=== PATIENT | male | born 1985 | race Caucasian/White ===

== ENCOUNTER 2022-10-19 04:40 | Inpatient (IN) | payer OTHER ==
--- OUTSIDE RECORDS SUMMARY | 2022-10-19 04:43 | XMS REPORT | Continuity of Care Document ---
:1985 Author Organization [facility] t Address [address] [place] [address] [address] [place] [address] Care Team Providers Name Role Phone PCP, PATIENT DOES NOT HAVE A Primary Care Physician Ese Walker Attending Clinician Unknown, Attending Attending Clinician Unavailable ESE HERNANDEZ Attending Clinician Unavailable Doctor Unassigned, [place] Attending Clinician Unavailable Payers Payer Name Policy Type Policy Number Effective Date Expiration Date S ource Problems Condition Condition Condition Status Onset Resolution Last Treating Co mments Source Name Details Category Date Date Treatment Clinician Date No known No known Disease Unive rs active active ity of problems problems [facility] Allergies, Adverse Reactions, Alerts Allergy Allergy Status Severity Reaction(s) Onset Inactive Treating Comm ents Source Name Type Date Date Clinician NO KNOWN Drug Active Univers ALLERGIE Class ity of S [facility] Social History Social Habit Start Date Stop Date Quantity Comments Source Exposure to 2022-07-23 2022-08-02 Not sure [facility] SARS-CoV-2 (event) 00:00:00 13:17:00 Medica l Branch Sex [facility]igned At [birth year] [facility] [place] 00:00:00 00:00:00 Medical Branch Smoking Status Start Date Stop Date Source Tobacco smoking consumption Univ [facility] Medical unknown Branch Medications Ordered Filled Start Stop Current Ordering Indication Dosage Frequency Signature Comments Components Source Medication Medication Date Date Medication? Clinician (SIG) Name Name doxycycline 2021-09- Yes [id number] 100mg Take 1 Univers hyclate 100 10-02 tablet by it y of mg tablet 00:00: 05:59 mouth in [place] 00 :00 the Medical morning Branch and 1 tablet in the evening. Do all this for 10 days. Vital Signs Vital Name Observation Time Observation Value Comments Source Systolic blood 2022-08-02 19:27:00 139 mm[Hg] Univer sity of pressure [facility] Diastolic blood 2022-08-02 19:27:00 82 mm[Hg] Unive rsity of [facility] Heart rate 2022-08-02 19:27:00 88 /min [facility] Body temperature 2022-08-02 19:27:00 36.67 Alexia [facility] Respiratory rate 2022-08-02 19:27:00 16 /min [facility] Body height 2022-08-02 19:27:00 185.4 cm [facility] Body weight 2022-08-02 19:27:00 96.843 kg [facility] BMI 2022-08-02 19:27:00 28.17 kg/m2 [facility] Oxygen saturation in 2022-08-02 19:27:00 97 /min [facility] Arterial blood by [facility] Pulse oximetry [facility] Procedures Procedure Date / Time Performed Performing Clinician [facility] e ASSIGNMENT OF BENEFITS 2022-08-02 19:15:02 Doctor Unassigned, No [facility] Encounters Start End Encounter Admission Attending Care Care Encounter Source Date/Time Date/Time Type Type Clinicians Facility Department ID 2022-08-02 2022-08-02 Urgent Ese Hernandez [facility] [id number] Univers 13:20:00 13:40:00 Care Unknown, Attending HEALTH [id number] juventino [facility] [id number] [place] ANDI?BLEA [phone] [address] MEDICAL OFFICE BUILDING 2022-08-02 2022-08-02 Outpatient R [facility] [id number] Univers 13:20:00 13:20:00 ESE jauregui [facility] 2022-08-02 2022-08-02 Orders Doctor HARMAN [id number] Univers 00:00:00 00:00:00 Only Unassigned, CINDY [id number] ity of [place] [facility] [id number] [place] [phone] [facility] 009 Branch Results This patient has no known results.
[2022-10-19 05:20] LABS: Absolute Lymphocytes (CBC) 1.3 K/uL (0.7-4.9); Hematocrit 45.2 % (39.6-49.0); Lymphocytes % 26.7 % (15.3-44.8); MCV 83.8 fL (80-100); RBC Red Blood Cell Count 5.39 M/uL (4.33-5.43)
[2022-10-19 05:32] LABS: Potassium 3.6 mmol/L (3.5-5.1)
[2022-10-19 05:37] LABS: Troponin High Sensitivity 76.1 pg/mL (<58.9)
[2022-10-19] MEDS ORDERED: ENOXAPARIN 100 MG/ML SYR SQ ONE (05:51)
[2022-10-19] MEDS ORDERED: METOPROLOL TAR 25 MG TAB ONE (05:51)
[2022-10-19] MEDS ORDERED: ASPIRIN 81 MG CHEWABLE TABLET ONE (05:51)
--- NOTE | 2022-10-19 05:56 | EDPHYS ---
Physician Documentation [facility] Name: Yasir Jimenez Age: 37 yrs Sex: Male : 1985 Arrival Date: 10/19/2022 Time: 04:41 Bed 5 Private MD: ED Physician Jaret Helton HPI: 10/19 05:51 This 37 yrs old Male presents to ER via Ambulatory with complaints of Chest carlene Pain. 05:51 The patient or guardian reports chest pain that is located primarily in the substernal carlene area. The pain does not radiate. Associated signs and symptoms: The patient has no apparent associated signs or symptoms. The chest pain is described as a pressure. Modifying factors: The symptoms are alleviated by nothing. the symptoms are aggravated by nothing. Severity of pain: At its worst the pain was moderate in the emergency department the pain is unchanged. The patient has not experienced similar symptoms in the past. Historical: - Allergies: 04:47 No Known Allergies; tw5 - Home Meds: 04:47 None [Active]; tw5 - PMHx: 04:47 None; tw5 - PSHx: 04:47 None; tw5 - Immunization history:: Flu vaccine is not up to date. - Social history:: Smoking status: Patient denies any tobacco usage or history of. - Family history:: not pertinent. ROS: 05:51 Constitutional: Negative for fever, chills, and weight loss, Eyes: Negative for injury, carlene pain, redness, and discharge, ENT: Negative for injury, pain, and discharge, Neck: Negative for injury, pain, and swelling, Respiratory: Negative for shortness of breath, cough, wheezing, and pleuritic chest pain, Abdomen/GI: Negative for abdominal pain, nausea, vomiting, diarrhea, and constipation, Back: Negative for injury and pain, : Negative for injury, bleeding, discharge, and swelling, MS/Extremity: Negative for injury and deformity, Skin: Negative for injury, rash, and discoloration, Neuro: Negative for headache, weakness, numbness, tingling, and seizure, Psych: Negative for depression, anxiety, suicide ideation, homicidal ideation, and hallucinations, Allergy/Immunology: Negative for hives, rash, and allergies, Endocrine: Negative for neck swelling, polydipsia, polyuria, polyphagia, and marked weight changes, Hematologic/Lymphatic: Negative for swollen nodes, abnormal bleeding, and unusual bruising. 05:51 Cardiovascular: Positive for chest pain. Exam: 05:51 Constitutional: This is a well developed, well nourished patient who is awake, alert, carlene and in no acute distress. Head/Face: Normocephalic, atraumatic. Eyes: Pupils equal round and reactive to light, extra-ocular motions intact. Lids and lashes normal. Conjunctiva and sclera are non-icteric and not injected. Cornea within normal limits. Periorbital areas with no swelling, redness, or edema. ENT: Nares patent. No nasal discharge, no septal abnormalities noted. Tympanic membranes are normal and external auditory canals are clear. Oropharynx with no redness, swelling, or masses, exudates, or evidence of obstruction, uvula midline. Mucous membranes moist. Neck: Trachea midline, no thyromegaly or masses palpated, and no cervical lymphadenopathy. Supple, full range of motion without nuchal rigidity, or vertebral point tenderness. No Meningismus. Chest/axilla: Normal chest wall appearance and motion. Nontender with no deformity. No lesions are appreciated. Cardiovascular: Regular rate and rhythm with a normal S1 and S2. No gallops, murmurs, or rubs. Normal PMI, no JVD. No pulse deficits. Respiratory: Lungs have equal breath sounds bilaterally, clear to auscultation and percussion. No rales, rhonchi or wheezes noted. No increased work of breathing, no retractions or nasal flaring. Abdomen/GI: Soft, non-tender, with normal bowel sounds. No distension or tympany. No guarding or rebound. No evidence of tenderness throughout. Back: No spinal tenderness. No costovertebral tenderness. Full range of motion. Skin: Warm, dry with normal turgor. Normal color with no rashes, no lesions, and no evidence of cellulitis. MS/ Extremity: Pulses equal, no cyanosis. Neurovascular intact. Full, normal range of motion. Neuro: Awake and alert, GCS 15, oriented to person, place, time, and situation. Cranial nerves II-XII grossly intact. Motor strength 5/5 in all extremities. Sensory grossly intact. Cerebellar exam normal. Normal gait. Psych: Awake, alert, with orientation to person, place and time. Behavior, mood, and affect are within normal limits. 05:51 ECG was reviewed by the Attending Physician. Vital Signs: 04:45 BP 127 / 80; Pulse 72; Resp 18; Temp 97.9; Pulse Ox 100% ; Weight 95.25 kg; Height 6 tw5 ft. 1 in. (185.42 cm); Pain 5/10; 04:45 Body Mass Index 27.71 (95.25 kg, 185.42 cm) tw5 MDM: 05:40 Patient medically screened. carlene 05:53 Differential diagnosis: abnormal EKG, acute myocardial infarction, acute pericarditis, carlene anxiety, chest wall pain, costochondritis, esophagitis, hiatal hernia, pancreatitis, pulmonary embolus, stable angina, unstable angina. HEART Score: History: Moderately Suspicious (1), ECG: Normal (0), Age: < or = 45 years (0), Risk Factors: No Risk Factors Known (0), Troponin: < or = 1 x Normal Limit (0). COLIN Risk Score: 1 - Elevated Cardiac Markers, TOTAL SCORE = 1. Data reviewed: vital signs, nurses notes, lab test result(s), EKG, radiologic studies, plain films. Consideration of Admission/Observation Patient was admitted/placed on observation. Escalation of care including admission/observation considered. Independent interpretation of the following test(s) in the Emergency Department EKG: See my EKG interpretation above. Test considered but Not performed: Ultrasound gb, echo. 10/19 04:49 Order name: Basic Metabolic Panel; Complete Time: 06:26 tw5 10/19 04:49 Order name: CBC with Diff; Complete Time: 05:38 tw5 10/19 04:49 Order name: Troponin HS; Complete Time: 06:26 tw5 10/19 05:11 Order name: Creatine Phosphokinase; Complete Time: 06:26 EDMS 10/19 05:11 Order name: NT PRO-BNP; Complete Time: 06:26 EDMS 10/19 05:51 Order name: SARS RAPID carlene 10/19 06:02 Order name: Lipid Profile; Complete Time: 06:26 EDMS 10/19 06:02 Order name: Lipase; Complete Time: 06:26 EDMS 10/19 04:49 Order name: XRAY Chest (1 view) tw10/19 04:49 Order name: EKG; Complete Time: 04:50 tw5 10/19 04:49 Order name: Cardiac monitoring; Complete Time: 04:59 tw5 10/19 04:49 Order name: EKG - Nurse/Tech; Complete Time: :59 5 10/19 04:49 Order name: IV Saline Lock; Complete Time: :59 5 10/19 10:53 Order name: Troponin High Sensitivity EDWV 10/19 11:40 Order name: Hemoglobin A1c EDWV 10/19 14:26 Order name: Troponin High Sensitivity EDWV 10/19 04:49 Order name: Labs collected and sent; Complete Time: 04:59 5 10/19 04:49 Order name: O2 Per Protocol; Complete Time: :59 5 10/19 04:49 Order name: O2 Sat Monitoring; Complete Time: :59 EC:51 Rate is 64 beats/min. Rhythm is regular. QRS [place] is Normal. CA interval is normal. QRS carlene interval is normal. QT interval is normal. No Q waves. T waves are Normal. No ST changes noted. Clinical impression: Normal ECG and No evidence of ischemia. Interpreted by me. Reviewed by me. Administered Medications: 05:53 Drug: Aspirin Chewable Tablet 324 mg Route: PO; ll3 05:53 Drug: Lopressor (metoprolol TARTRATE)) 25 mg Route: PO; ll3 05:53 Drug: Lovenox (enoxaparin) 1 mg/kg Route: Sub-Q; Site: abdomen; ll3 06:10 Drug: Pepcid (famotidine) 20 mg Route: IVP; Site: right antecubital; ll3 06:10 Drug: Lipitor (atorvastatin) 40 mg Route: PO; ll3 06:11 Drug: PlaVIX (clopidogrel) 300 mg Route: PO; ll3 06:46 Not Given (Patient Refused): morphine 4 mg IVP once over 4 mins ll3 06:46 Not Given (Patient Refused): Zofran (Ondansetron) 4 mg IVP once; over 2 minutes ll3 Disposition Summary: 10/19/22 05:55 Hospitalization Ordered Hospitalization Status: Inpatient Admission carlene Condition: Fair carlene Problem: new carlene Symptoms: have improved carlene Bed/Room Type: Standard carlene Provider: Savage Ricks(10/19/22 06:26) carlene Location: Telemetry/MedSurg (Inpatient)(10/19/22 14:28) dw Room Assignment: 428(10/19/22 14:28) dw Diagnosis - Chest pain, unspecified carlene - Non ST elevation [place] carlene Forms: - Medication Reconciliation Form carlene - SBAR form carlene Signatures: Dispatcher [employer] EDOpal Rojas RN RN Jaret José MD MD cha Williams, Irene, RN RN iw Leilani Segura tw5 Mikala Rivero RN RN ll3 Corrections: (The following items were deleted from the chart) 05:11 04:54 CREATINE PHOSPHOKINASE+C.LAB.BRZ ordered. EDMS EDMS 05:11 04:54 PROBNP+C.LAB.BRZ ordered. EDMS EDMS 05:59 05:57 LIPID PROFILE+C.LAB.BRZ ordered. EDMS EDMS 05:59 05:57 LIPASE+C.LAB.BRZ ordered. EDMS EDMS 06:12 06:01 LIPASE+C.LAB.BRZ ordered. EDMS EDMS 06:12 06:01 LIPID PROFILE+C.LAB.BRZ ordered. EDMS EDMS 06:26 05:55 Dora Taylor carlene carlene 12:58 05:55 Telemetry/MedSurg (Inpatient) carlene iw 12:58 05:55 carlene iw 14:28 12:58 [facility] ER HOLD iw dw 14:28 12:58 ERHOLD- iw dw
--- NOTE | 2022-10-19 05:56 | ER ---
Nurse's Notes [facility] Name: Yasir Jimenez Age: 37 yrs Sex: Male : 1985 Arrival Date: 10/19/2022 Time: 04:41 Bed 5 Private MD: Diagnosis: Chest pain, unspecified;Non ST elevation PR Presentation: 10/19 04:45 Chief complaint: Patient states: "I woke up out of my sleep with some chest pain. It is tw5 all on the left side. I haven't been feeling really well the last couple of days and I have been working pretty hard like building a fence.". Coronavirus screen: Vaccine status: Patient reports receiving the 2nd dose of the covid vaccine. Moderna. Ebola Screen: Patient negative for fever greater than or equal to 101.5 degrees Fahrenheit, and additional compatible Ebola Virus Disease symptoms Patient denies exposure to infectious person. Patient denies travel to an Ebola-affected area in the 21 days before illness onset. Initial Sepsis Screen: Does the patient meet any 2 criteria? No. Patient's initial sepsis screen is negative. Does the patient have a suspected source of infection? No. Patient's initial sepsis screen is negative. Risk Assessment: Do you want to hurt yourself or someone else? Patient reports no desire to harm self or others. Onset of symptoms was October 19, 2022 at 04:00. 04:45 Method Of Arrival: Ambulatory tw5 04:45 Acuity: HONEY 2 tw5 Triage Assessment: 04:47 General: Appears in no apparent distress. Behavior is calm, cooperative, appropriate tw5 for age. Pain: Complains of pain in chest Pain currently is 5 out of 10 on a pain scale. Quality of pain is described as aching. Cardiovascular: Patient's skin is warm and dry. Historical: - Allergies: 04:47 No Known Allergies; tw5 - Home Meds: 04:47 None [Active]; tw5 - PMHx: 04:47 None; tw5 - PSHx: 04:47 None; tw5 - Immunization history:: Flu vaccine is not up to date. - Social history:: Smoking status: Patient denies any tobacco usage or history of. - Family history:: not pertinent. Screenin:04 [facility] ED Fall Risk Assessment (Adult) History of falling in the last 3 months, ll3 including since admission No falls in past 3 months (0 pts) Confusion or Disorientation No (0 pts) Intoxicated or Sedated No (0 pts) Impaired Gait No (0 pts) Mobility Assist Device Used No (0 pt) Altered Elimination No (0 pt) Score/Fall Risk Level 0 - 2 = Low Risk Oriented to surroundings, Maintained a safe environment, Educated pt \\T\\ family on fall prevention, incl call for assistance when getting out of bed. Abuse screen: Denies threats or abuse. Denies injuries from another. Nutritional screening: No deficits noted. Tuberculosis screening: No symptoms or risk factors identified. Assessment: 05:02 General: Appears uncomfortable, Behavior is calm, cooperative. Pain: Complains of pain ll3 in chest Pain radiates to back Pain currently is 5 out of 10 on a pain scale. Quality of pain is described as aching, Pain began suddenly, Is continuous, Aggravated by repositioning. Cardiovascular: Patient's skin is warm and dry. Rhythm is sinus rhythm Chest pain is described as vague, quality is Aching is located in left anterior chest wall radiates back episodes are continuous. Respiratory: Respiratory effort is even, unlabored, Respiratory pattern is regular, symmetrical. Derm: Skin is pink, warm \\T\\ dry. 14:36 General: attempted report to floor. was informed nurse will return my call. ap3 15:07 Reassessment: report given to JULIO Cannon. ap3 Vital Signs: 04:45 BP 127 / 80; Pulse 72; Resp 18; Temp 97.9; Pulse Ox 100% ; Weight 95.25 kg; Height 6 tw5 ft. 1 in. (185.42 cm); Pain 5/10; 04:45 Body Mass Index 27.71 (95.25 kg, 185.42 cm) tw5 ED Course: 04:41 Patient arrived in ED. jj6 04:47 Triage completed. tw5 04:48 Arm band placed on left wrist. tw5 04:58 Inserted saline lock: 20 gauge in right antecubital area, using aseptic technique. kl Blood collected. 04:59 Basic Metabolic Panel Sent. kl 04:59 CBC with Diff Sent. kl 04:59 Troponin HS Sent. kl 05:05 Patient has correct armband on for positive identification. Bed in low position. Call ll3 light in reach. Side rails up X 1. Client placed on continuous cardiac and pulse oximetry monitoring. NIBP monitoring applied. 05:05 Patient maintains SpO2 saturation greater than 95% on room air. ll3 05:16 XRAY Chest (1 view) In Process Unspecified. EDMS 05:37 Notified ED physician of a critical lab result(s). Trop 76.1. ll3 05:38 Jaret Helton MD is Attending Physician. carlene 05:55 Dora Taylor MD is Hospitalizing Provider. carlene 06:26 Savage Ricks is Hospitalizing Provider. carlene 07:45 No provider procedures requiring assistance completed. Patient admitted, IV remains in ap3 place. Administered Medications: 05:53 Drug: Aspirin Chewable Tablet 324 mg Route: PO; ll3 05:53 Drug: Lopressor (metoprolol TARTRATE)) 25 mg Route: PO; ll3 05:53 Drug: Lovenox (enoxaparin) 1 mg/kg Route: Sub-Q; Site: abdomen; ll3 06:10 Drug: Pepcid (famotidine) 20 mg Route: IVP; Site: right antecubital; ll3 06:10 Drug: Lipitor (atorvastatin) 40 mg Route: PO; ll3 06:11 Drug: PlaVIX (clopidogrel) 300 mg Route: PO; ll3 06:46 Not Given (Patient Refused): morphine 4 mg IVP once over 4 mins ll3 06:46 Not Given (Patient Refused): Zofran (Ondansetron) 4 mg IVP once; over 2 minutes ll3 Medication: 05:05 VIS not applicable for this client. ll3 Outcome: 05:55 Decision to Hospitalize by Provider. carlene 07:45 Admitted to ER Hold. Please see [facility] for further documentation. ap3 07:45 Condition: good 07:45 Instructed on the need for admit. 15:34 Patient left the ED. ap3 Signatures: Dispatcher [employer] Yeny Toussaint RN RN kl Anderson, Corey, MD MD cha Prokisch, Amanda RN RN ap3 Leilani Segura tw5 Joann Keitaj6 Mikala Rivero RN RN ll3 Corrections: (The following items were deleted from the chart) 05:11 04:59 PROBNP+C.LAB.BRZ drawn and sent. humberto BANGMA 05:11 04:59 CREATINE PHOSPHOKINASE+C.LUKE drawn and sent. MERRITTMA
[2022-10-19] MEDS ORDERED: CLOPIDOGREL 75 MG TABLET ONE (06:06)
[2022-10-19] MEDS ORDERED: ATORVASTATIN 20 MG TAB ONE (06:07)
[2022-10-19] MEDS ORDERED: FAMOTIDINE 20 MG/2 ML VIAL IV ONE (06:07)
[2022-10-19 06:34] LABS: SARS-CoV-2 Antigen Rapid Res Negative (Negative)
--- NOTE | 2022-10-19 07:15 | P.HP ---
Certification for Inpatient Patient admitted to: Observation With expected LOS: <2 Midnights Patient will require the following post-hospital care: None Practitioner: I am a practitioner with admitting privileges, knowledge of patient current condition, hospital course, and medical plan of care. Services: Services provided to patient in accordance with Admission requirements found in Title 42 Section 412.3 of the Code of Federal Regulations Patient History Date of Service: 10/19/22 Reason for admission: Chest pain History of Present Illness: 37-year-old gentleman with no known past medical history, not on any home medication presented to the emergency department with a complaint of chest pain that woke him up from sleep early this morning. Chest pain associated with easy fatigability and shortness of breath. Patient denied any diaphoretic. He stated he was nauseous yesterday and noted he was easily getting tired at work. He denied any preceding fever or chills or abdominal pain or diarrhea. He reported intermittent cough in which he attributed to his allergies. In the ED, patient troponin mildly elevated, EKG shows sinus rhythm, no ischemic changes, chest x-ray did not show any acute disease. ED provider was concerned of unstable angina, full dose Lovenox, metoprolol and aspirin given, cardiology informed. Patient is hospitalized for further management. Allergies No Known Allergies Allergy (Unverified 12/24/11 19:39) Home medications list reviewed: Yes - Past Medical/Surgical History Diabetic: No -: None -: None - Family History Family History: Reviewed- Non-Contributory - Family History No known medical history in the family Notes: No known medical history in the family - Social History Smoking Status: Never smoker Alcohol use: Yes Place of Residence: Home Review of Systems Other: Except as documented, all other systems reviewed and negative. Physical Examination - Physical Exam General: Alert, In no apparent distress, Oriented x3 HEENT: PERRLA, Mucous membr. moist/pink, EOMI, Sclerae nonicteric Neck: Supple, 2+ carotid pulse no bruit, JVD not distended Respiratory: Clear to auscultation bilaterally, Normal air movement Cardiovascular: No edema, Regular rate/rhythm, Normal S1 S2, No murmurs Capillary refill: <2 Seconds Gastrointestinal: Normal bowel sounds, Soft and benign, Non-distended, No tenderness Musculoskeletal: No swelling, No tenderness Integumentary: No rashes, No erythema, No cyanosis Neurological: Normal speech, Normal strength at 5/5 x4 extr, Cranial nerves 3-12 intact Lymphatics: No axilla or inguinal lymphadenopathy - Studies Laboratory Data (last 24 hrs) 10/19/22 06:00: Triglycerides Cancelled, Cholesterol Cancelled, HDL Cholesterol Cancelled, Cholesterol/HDL Ratio Cancelled, Lipase Cancelled 10/19/22 05:57: Triglycerides Cancelled, Cholesterol Cancelled, HDL Cholesterol Cancelled, Cholesterol/HDL Ratio Cancelled, Lipase Cancelled 10/19/22 04:50: WBC 5.00, Hgb 15.5, Hct 45.2, Plt Count 202 10/19/22 04:50: Sodium 140, Potassium 3.6, BUN 20 H, Creatinine 1.07, Glucose 103, Triglycerides 82, Cholesterol 205 H, HDL Cholesterol 37 L, Cholesterol/HDL Ratio 5.54, Lipase 72 L Assessment and Plan - Problems (Diagnosis) (1) Chest pain Current Visit: Yes Status: Acute (2) NSTEMI (non-ST elevated myocardial infarction) Current Visit: Yes Status: Acute - Plan Place patient under observation. Continue to trend troponin Patient given full dose Lovenox in the ED. Awaiting cardiology input. Further anticoagulation will be based on cardiology recommendation. Metoprolol, aspirin. Lipitor. Morphine as needed for pain. Diabetes screen. - Advance Directives Does patient have a Living Will: No Does patient have a Durable POA for Healthcare: No
[2022-10-19] MEDS ORDERED: ACETAMINOPHEN 500 MG TAB PO PRN (07:22)
[2022-10-19] MEDS ORDERED: MORPHINE 2 MG/ML SYR IV PRN (07:22)
[2022-10-19] MEDS ORDERED: ZOLPIDEM TARTRATE 5 MG TABLET PO PRN (07:22)
[2022-10-19] MEDS ORDERED: NITROGLYCERIN 0.4 MG/TAB SL PRN (07:22)
[2022-10-19 07:28] VITALS: BMI 27.7
--- NOTE | 2022-10-19 07:54 | EKG ---
Test Date: 2022-10-19 Test Time: 04:54:54 Marine Equipment Preservation Inspector: BERTHA MEASUREMENT RESULTS: Intervals: Rate: 64 LA: 162 QRSD: 86 QT: 396 QTc: 408 [place]: P: 33 LA: 162 QRS: 27 T: 20 INTERPRETIVE STATEMENTS: Normal sinus rhythm Normal ECG No previous ECG available for comparison Electronically Signed On 10-19-22 07:53:41 V[address]TE SERVICER by Tutu Douglass
--- NOTE | 2022-10-19 16:15 | RAD REPORT ---
EXAM DESCRIPTION: RAD - Chest Single View - 10/19/2022 5:14 am CLINICAL HISTORY: The patient is 37 years old and is Male; CHEST PAIN TECHNIQUE: Single view of the chest. COMPARISON: No relevant prior studies available. FINDINGS: Lungs: No pulmonary vascular congestion or consolidation. Pleural space: Unremarkable. No pneumothorax. Heart: Unremarkable. No cardiomegaly. Mediastinum: Unremarkable. Bones/joints: No acute fracture visualized. Upper abdomen: No free air in the visualized upper abdomen. IMPRESSION: No acute cardiopulmonary process identified. Electronically signed by: Mana Henning MD 10/19/2022 5:23 AM [employer] Due to temporary technical issues with the PACS/Fluency reporting system, reports are being signed by the in house radiologists without review as a courtesy to insure prompt reporting. The interpreting radiologist is fully responsible for the content of the report.
[2022-10-20 03:50] LABS: Absolute Lymphocytes (CBC) 1.5 K/uL (0.7-4.9); Hematocrit 44.1 % (39.6-49.0); MCV 83.8 fL (80-100); MPV 7.9 fL (7.6-11.3); RBC Red Blood Cell Count 5.26 M/uL (4.33-5.43)
[2022-10-20 04:07] LABS: Potassium 3.9 mmol/L (3.5-5.1)
[2022-10-20] MEDS ORDERED: HEPA 1000U/500MLS 2,000 UNIT/1,000 ML BAG IV ONE (06:13)
[2022-10-20] MEDS ORDERED: LIDOCAINE 1% 20 ML MDV ONE (06:13)
[2022-10-20] MEDS ORDERED: FENTANYL CITR 100 MCG/2 ML ONE (06:14)
[2022-10-20] MEDS ORDERED: HEPARIN 5000 UNIT/ML 1 ML VIAL ONE (06:14)
[2022-10-20] MEDS ORDERED: MIDAZOLAM HCL 2 MG/2 ML INJ ONE (06:14)
[2022-10-20] MEDS ORDERED: VERAPAMIL HCL 10 MG/4 ML VIAL IV ONE (06:14)
[2022-10-20] MEDS ORDERED: NITROGLYCERIN 100 MCG/ML SYR (for cath lab use only) IV ONE (06:15)
[2022-10-20] MEDS ORDERED: HEPARIN 10,000 UNIT/10 ML VIAL IV ONE (06:15)
[2022-10-20] MEDS ORDERED: ATROPINE SULF 1 MG/10 ML SYR IV ONE (06:15)
[2022-10-20] MEDS ORDERED: CLOPIDOGREL 75 MG TABLET ONE (06:15)
[2022-10-20] MEDS ORDERED: NITROGLYCERIN/D5W 25 MG/250 ML BTL IV ONE (06:15)
[2022-10-20] MEDS ORDERED: ASPIRIN EC 81 MG TAB PO ONE (06:16)
[2022-10-20] MEDS ORDERED: TICAGRELOR 90 MG TABLET PO ONE (06:16)
[2022-10-20] MEDS ORDERED: NA CHLORIDE 0.9% 500 ML ONE (06:25)
--- NOTE | 2022-10-20 06:26 | ECHO ---
HEIGHT: 6 ft 1 in WEIGHT: 209 lb 15.845 oz DATE OF STUDY: 10/19/[address]: Savage Ricks MD 2-DIMENSIONAL: YES M.MODE: YES DOPPLER: YES COLOR FLOW: YES TDS: PORTABLE: DEFINITY: BUBBLE STUDY: DIAGNOSIS: NON ST ELEVATION MYOCARDIAL INFARCTION CARDIAC HISTORY: CATHERIZATION: NO SURGERY: NO PROSTHETIC VALVE: NO PACEMAKER: NO MEASUREMENTS (cm) DIASTOLIC (NORMALS) SYSTOLIC (NORMALS) IVSd 1.0 (0.6-1.2) LA Diam 2.4 (1.9-4.0) LVEF 68% LVIDd 4.4 (3.5-5.7) LVIDs 2.7 (2.0-3.5) %FS 38% LVPWd 1.0 (0.6-1.2) Ao Diam 2.4 (2.0-3.7) 2 DIMENSIONAL ASSESSMENT: RIGHT ATRIUM: NORMAL LEFT ATRIUM: NORMAL RIGHT VENTRICLE: NORMAL LEFT VENTRICLE: NORMAL TRICUSPID VALVE: MILD TRICUSPID REGURGITATION MITRAL VALVE: MILD MITRAL REGURGITATION PULMONIC VALVE: NORMAL AORTIC VALVE: NORMAL PERICARDIAL EFFUSION: NONE AORTIC ROOT: NORMAL LEFT VENTRICULAR WALL MOTION: NORMAL DOPPLER/COLOR FLOW: SEE BELOW COMMENTS: 1. NORMAL LEFT VENTRICULAR EJECTION FRACTION 60-65% 2. NORMAL WALL MOTION 3. MILD TRICUSPID REGURGITATION 4. MILD MITRAL REGURGITATION 5. NORMAL DIASTOLIC FUNCTION TECHNOLOGIST: SABINA WASHBURN
--- NOTE | 2022-10-20 08:41 | OP ---
Date of Procedure: 10/20/2022 Surgeon: DURGA IRVIN Procedures Performed: 1.Selective coronary angiogram. 2.Left heart catheterization. Indication: Non ST elevation myocardial infarction. Access: The right radial artery 6-[place]ijani, closed with TR band. Complications: None. Bleeding: Less than 10 mL. Anesthesia: Total sedation time was 20 minutes with fentanyl and Versed. Description Of Procedure: After risks, benefits, and alternatives were explained, the patient agreed to the procedure and signed informed consent. Patient was brought into the cardiac catheterization laboratory, prepped and draped in usual sterile fashion. Then, I accessed right radial artery using pediatric micropuncture kit and placed a 6-[place]ij[place] slender sheath. Took a 5-[place] 4 catheter i nto the aortic root, engaged left main, right coronary artery and the catheter and took standard view s and then the catheter was pushed over the wire into the LV, measured the LVEDP and pullback not rec orded in gradient. Catheter was removed. Sheath was removed and placed TR band with good hemostasis . Findings: 1.Left main; large, normal, and long. 2.LAD; normal. Normal diagonal branches and large vessel. 3.Left circumflex. It originates from the right coronary cusp and it is anomalous left circumflex o rigin. 4.RCA; large, dominant, and normal. 5.Normal LVEDP of 7 mmHg. Conclusion: 1.Normal coronary arteries. 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 3.Normal LVEDP. Recommendation: Medical management. SR/MODL Voice ID: [id number] Report ID: [id number]
[2022-10-20] MEDS ORDERED: ASPIRIN EC 81 MG TAB PO SCH (09:00)
[2022-10-20 09:20] VITALS: O2SAT 98
--- NOTE | 2022-10-20 10:27 | P.DS ---
Admission Date: 10/19/22 Discharge Date: 10/20/22 Disposition: ROUTINE DISCHARGE Discharge Condition: FAIR Reason for Admission: Chest pain - Problems (1) Chest pain Current Visit: Yes Status: Acute (2) NSTEMI (non-ST elevated myocardial infarction) Current Visit: Yes Status: Acute Brief History of Present Illness: 37-year-old gentleman with no known past medical history, not on any home medication presented to the emergency department with a complaint of chest pain that woke him up from sleep early this morning. Chest pain associated with easy fatigability and shortness of breath. Patient denied any diaphoretic. He stated he was nauseous yesterday and noted he was easily getting tired at work. He denied any preceding fever or chills or abdominal pain or diarrhea. He reported intermittent cough in which he attributed to his allergies. In the ED, patient troponin mildly elevated, EKG shows sinus rhythm, no ischemic changes, chest x-ray did not show any acute disease. ED provider was concerned of unstable angina, full dose Lovenox, metoprolol and aspirin given, cardiology informed. Patient was hospitalized for further management. Hospital Course: Patient admitted to the medical floor and treated for NSTEMI with full dose Lovenox, aspirin. Troponin trended flat. Patient was seen and evaluated by cardiology Dr. Douglass who performed cardiac catheterization. Patient found to have normal coronary arteries, no intervention done. He was chest pain-free throughout the hospital stay. Lipid profile showed elevated LDL. Lifestyle modification with low-fat low-cholesterol diet advised. Patient is deemed stable for discharge by cardiology. Vital Signs/Physical Exam: Temp Pulse Resp BP Pulse Ox 98.3 F 83 17 122/73 98 10/20/22 09:33 10/20/22 09:33 10/20/22 09:33 10/20/22 09:33 10/20/22 09:33 General: Alert, In no apparent distress, Oriented x3 HEENT: Mucous membr. moist/pink Neck: Supple, JVD not distended Respiratory: Clear to auscultation bilaterally, Normal air movement Cardiovascular: No edema, Regular rate/rhythm, Normal S1 S2 Capillary refill: <2 Seconds Gastrointestinal: Soft and benign, Non-distended, No tenderness Musculoskeletal: No swelling Integumentary: No rashes Neurological: Normal strength at 5/5 x4 extr Laboratory Data at Discharge: WBC 5.30 K/uL (4.3-10.9) 10/20/22 03:32 Hgb 15.2 g/dL (13.6-17.9) 10/20/22 03:32 Hct 44.1 % (39.6-49.0) 10/20/22 03:32 Plt Count 188 K/uL (152-406) 10/20/22 03:32 Sodium 139 mmol/L (136-145) 10/20/22 03:32 Potassium 3.9 mmol/L (3.5-5.1) 10/20/22 03:32 BUN 18 mg/dL (7-18) 10/20/22 03:32 Creatinine 1.15 mg/dL (0.70-1.30) 10/20/22 03:32 Glucose 106 mg/dL (74-106) 10/20/22 03:32 Triglycerides Cancelled 10/19/22 06:00 Cholesterol Cancelled 10/19/22 06:00 HDL Cholesterol Cancelled 10/19/22 06:00 Cholesterol/HDL Ratio Cancelled 10/19/22 06:00 Lipase Cancelled 10/19/22 06:00 Diet: AHA Activity: Ad danette Followup: Tutu Douglass MD [ACTIVE - CAN ADMIT] - 1 Week Time spent managing pt's care (in minutes): 28
[2022-10-20 13:18] VITALS: BP 120/70; TEMP 98.4
== END 2022-10-20 13:24 | disposition home or self-care (01) | DRG 282 ==
LOC: ER 04:40 → UNDOADMOB 07:10 → ERHOLD 07:10 → 4TH 15:17
PROVIDERS: ADMIT Internal Medicine; ATTEND Internal Medicine
PROC: 4A023N7 Measurement of Cardiac Sampling and Pressure, Left Heart, Percutaneous Approach (ICD-10-PCS; principal; 2022-10-20)
PROC: B2111ZZ Fluoroscopy of Multiple Coronary Arteries using Low Osmolar Contrast (ICD-10-PCS; 2022-10-20)
DX: Q24.5 Malformation of coronary vessels (principal); I21.4 Non-ST elevation (NSTEMI) myocardial infarction
CPT/HCPCS: 36415; 71045; 80048; 80061; 82550; 83036; 83690; 83880; 84484; 85025; 87811; 93005; 93306; 93458; 94760; 96372; 96374; 99285; C1893; J0461; J1644; J1650; J2001; J2250; J3010; J7040; Q9966